=== PATIENT | female | born 1985 | race African-American/Black ===

== ENCOUNTER 2016-09-28 20:18 | Emergency (ER) | payer SELFPAY ==
[~2016-09-28] VITALS: Ht 160 cm; Wt 68.5 kg
[2016-09-28] MEDS: LIDOCAINE HCL 1% 20ML VIAL (Pyxis) INJ MC ONE (23:26)
[2016-09-28 23:30] VITALS: BP 137/74
== END 2016-09-28 23:36 | disposition home or self-care (01) ==
LOC: ER 20:20
DX: S01.511A Laceration without foreign body of lip, initial encounter (principal); J45.909 Unspecified asthma, uncomplicated; X58.XXXA Exposure to other specified factors, initial encounter; Y93.89 Activity, other specified; Y92.89 Other specified places as the place of occurrence of the external cause; Y99.8 Other external cause status
CPT/HCPCS: 12011; 81025; 99283; J3490; Z7610

== ENCOUNTER 2016-10-03 22:20 | Emergency (ER) | payer MEDICAID ==
[~2016-10-03] VITALS: Ht 160 cm; Wt 69.0 kg
[2016-10-04] MEDS ORDERED: ACETAMINOPHEN 325MG TABLET PO ONE (02:30)
[2016-10-04 03:00] VITALS: BP 120/66
== END 2016-10-04 03:30 | disposition home or self-care (01) ==
LOC: ER 22:20
DX: S01.511D Laceration without foreign body of lip, subsequent encounter (principal); K05.10 Chronic gingivitis, plaque induced; J45.909 Unspecified asthma, uncomplicated; X58.XXXD Exposure to other specified factors, subsequent encounter; Y99.8 Other external cause status; Y92.89 Other specified places as the place of occurrence of the external cause
CPT/HCPCS: 99283; Z7610

== ENCOUNTER 2021-12-09 10:01 | Emergency (ER) | payer SELFPAY ==
[~2021-12-09] VITALS: Ht 172.7 cm; Wt 68.0 kg
[2021-12-09] MEDS ORDERED: ALBUTEROL (0.083%) 2.5MG/3ML NEB HHN STA (10:14)
[2021-12-09] MEDS ORDERED: METHYLPREDNISOLONE SOD SUCC 125 MG/2 ML VIAL IV STA (10:14)
[2021-12-09] MEDS ORDERED: IPRATROPIUM BROMIDE (0.02%) 0.5MG/2.5ML NEB HHN STA (10:14)
[2021-12-09 10:46] LABS: BASOPHILS % 0.5 % (0.0-2.0); EOSINOPHILS % 4.5 % (0.0-5.0); HEMATOCRIT. 37.1 % (36.0-48.0); HEMOGLOBIN. 12.1 g/dL (12.0-16.0); LYMPHOCYTES % 16.1 % (20.0-50.0); MEAN CORPUSCULAR HEMOGLOBIN 30.5 pg (28.0-32.0); MEAN CORPUSCULAR VOLUME 93.7 fL (81.0-99.0); MEAN PLATELET VOLUME 8.7 fl (7.4-10.4); MONOCYTES % 6.6 % (2.0-8.0); NEUTROPHILS % 72.3 % (40.0-76.0); PLATELET 203 x1000/uL (130-400); RED BLOOD CELL COUNT 3.96 mill/uL (4.2-5.4); RED CELL DISTRIBUTION WIDTH 13.3 % (11.6-14.6)
[2021-12-09 10:52] LABS: CHLORIDE 105 mEq/L (98-107)
[2021-12-09 10:54] LABS: HCG SCREEN NEGATIVE
[2021-12-09 11:07] LABS: ETHANOL BLOOD < 10 mg/dL
[2021-12-09] MEDS ORDERED: P20 MT (11:39)
[2021-12-09 11:50] VITALS: BP 124/82
== END 2021-12-09 12:31 | disposition home or self-care (01) ==
LOC: ER 10:01
DX: J45.901 Unspecified asthma with (acute) exacerbation (principal); J45.909 Unspecified asthma, uncomplicated; Z20.822 Contact with and (suspected) exposure to COVID-19
CPT/HCPCS: 36415; 71045; 80053; 80320; 83690; 83880; 84703; 85025; 87426; 87804; 93005; 94640; 96374; 99285; C9803; J2930; Z7610; 80305; G0480